=== PATIENT | male | born 1975 | race African-American/Black ===

== ENCOUNTER 2020-02-18 00:31 | Emergency (ER) | payer SELFPAY ==
[~2020-02-18] VITALS: Ht 182.9 cm; Wt 90.0 kg
--- NOTE | 2020-02-18 01:04 | PHYS DOC ---
Past Medical History Past Medical History: No Pertinent History Past Surgical History: No Surgical History Smoking Status: Current Every Day Smoker Alcohol Use: Occasionally General Adult EDM: Chief Complaint: MULTIPLE COMPLAINTS HPI: HPI: Patient is a 44 year old male presenting to the ED with a chief complaint of numbness to his right forearm. Patient states that he got out of his truck and felt like his right arm from his elbow to his right wrist was dangling. With almost felt like his arm fell asleep. Patient denies headache, visual changes, difficulty speaking, difficulty walking. Patient states that this happened at work and so he had to leave. Patient does request a note off from work. Review of Systems: Review of Systems: Constitutional: Denies fever or chills. [] Eyes: Denies change in visual acuity. [] HENT: Denies nasal congestion or sore throat. [] Respiratory: Denies cough or shortness of breath. [] Cardiovascular: Denies chest pain or edema. [] Musculoskeletal: Complains of tingling from his right elbow to his right wrist Heart Score: Risk Factors: Risk Factors: DM, Current or recent (<one month) smoker, HTN, HLP, family history of CAD, obesity. Risk Scores: Score 0 - 3: 2.5% MACE over next 6 weeks - Discharge Home Score 4 - 6: 20.3% MACE over next 6 weeks - Admit for Clinical Observation Score 7 - 10: 72.7% MACE over next 6 weeks - Early Invasive Strategies Physical Exam: PE: Constitutional: Well developed, well nourished, no acute distress, non-toxic appearance. [] HENT: Normocephalic, atraumatic Eyes: EOMI Neck: Normal range of motion Respiratory: No respiratory distress Extremities: No tenderness, ROM intact, neurovascular intact in the right upper extremity Neurologic: Alert and oriented X 3 Current Patient Data: Vital Signs: Vital Signs Date Time Temp Pulse Resp B/P (MAP) Pulse Ox O2 Delivery O2 Flow Rate FiO2 02/18/20 00:40 98.6 77 18 153/91 (111) 98 Room Air 98.6 EKG: EKG: [] Radiology/Procedures: Radiology/Procedures: [] Course & Med Decision Making: Course & Med Decision Making Patient is neurovascularly intact. States that her symptoms are not resolved. Very low concern for CVA as patient symptoms are only from the right elbow to the right wrist. Most likely peripheral neuropathy or paresthesias. We will give patient a sling Patient is given a work Note for today. I have encouraged patient to follow-up with PCP in 1 to 2 days. Discussed plan of care with patient. Patient is instructed to follow up with PCP in one to 2 days. Appropriate discharge instructions given to patient to return to the ED or to seek immediate medical evaluation. Patient is instructed to return to the ED if symptoms worsen or if any concerns. Issa Disclaimer: Issa Disclaimer: This electronic medical record was generated, in whole or in part, using a voice recognition dictation system. Departure Departure Impression: Primary Impression: Paresthesia of right arm Disposition: 01 HOME, SELF-CARE Condition: STABLE Referrals: NO PCP (PCP) Patient Instructions: Paresthesia Justicifation of Admission Dx: Justifications for Admission: Justification of Admission Dx: No JEAN MARIE ORTIZ DO Feb 18, 2020 01:04
[2020-02-18] MEDS ORDERED: methylPREDNISolone SOD SUCC PF 125 MG/2 ML VIAL. ONE (01:22)
[2020-02-18 01:25] VITALS: BP 154/80
[2020-02-18] MEDS ORDERED: methylPREDNISolone SOD SUCC PF 125 MG/2 ML VIAL. IM ONE (02:00)
== END 2020-02-18 01:35 | disposition home or self-care (01) ==
LOC: ER 00:31
DX: R20.0 Anesthesia of skin (principal); F17.200 Nicotine dependence, unspecified, uncomplicated
CPT/HCPCS: 99282; A4565